=== PATIENT | female | born 1950 | race Caucasian/White ===

== ENCOUNTER 2023-08-22 12:53 | Emergency (ER) | payer OTHER ==
--- OUTSIDE RECORDS SUMMARY | 2023-08-22 12:55 | XMS REPORT | Continuity of Care Document ---
:1950 Author Organization [facility] t Address [address] [place] [address] [place] [id number] Care Team Providers Name Role Phone Carleen Montalvo Primary Care Physician Nixon Delarosa Family Attending Clinician Unavailable Yazmin Santana MD Attending Clinician YAZMIN SANTANA Attending Clinician Unavailable YAZMIN SANTANA Attending Clinician Unavailable 1, [facility] Attending Clinician Unavailable Doctor Unassigned, [place] Attending Clinician Unavailable JAN FITZPATRICK Attending Clinician Unavailable Payers Payer Name Policy Type Policy Number Effective Date Expiration Date S ource Problems Condition Condition Condition Status Onset Resolution Last Treating Co mments Source Name Details Category Date Date Treatment Clinician Date No known No known Disease Unive rs active active ity of problems problems [facility] Allergies, Adverse Reactions, Alerts Allergy Allergy Status Severity Reaction(s) Onset Inactive Treating Comm ents Source Name Type Date Date Clinician NO KNOWN Drug Active Univers ALLERGIE Class ity of S [place] [facility] [place] Social History Social Habit Start Date Stop Date Quantity Comments Source Exposure to Not sure [facility] SARS-CoV-2 (event) Medica l Branch Sex Assigned At [birth year] [facility] 00:00:00 00:00:00 Medical Branch Smoking Status Start Date Stop Date Source Tobacco smoking consumption Univ [facility] Medical unknown Branch Medications Ordered Filled Start Stop Current Ordering Indication Dosage Frequency Signature Comments Components Source Medication Medication Date Date Medication? Clinician (SIG) Name Name traZODone Yes 100mg Take 100 Uni vers 100 mg 8-31 mg by ity of tablet 00:00: mouth. Medical Branch traZODone Yes 100mg Take 100 Uni vers 100 mg 8-31 mg by ity of tablet 00:00: mouth. Medical Branch traZODone Yes 100mg Take 100 Uni vers 100 mg 8-31 mg by ity of tablet 00:00: mouth. Medical Branch montelukast 2021- No 10mg Take 10 mg Univers 10 mg 07-18 by mouth. ity of tablet 00:00: 04:59 [place] 00 :00 Medical Branch albuterol 2020-2021- No 2{puff} Inhale 2 Univers 90 07-18 Puffs. ity of mcg/actuati 00:00: 04:59 [place] on inhaler 00 :00 Medical Branch montelukast 2020-2021- No 10mg Take 10 mg Univers 10 mg 07-18 by mouth. ity of tablet 00:00: 04:59 [place] 00 :00 Medical Branch albuterol 2021- No 2{puff} Inhale 2 Univers 90 07-18 Puffs. ity of mcg/actuati 00:00: 04:59 [place] on inhaler 00 :00 Medical Branch rosuvastati Yes TAKE 1 Univ ers n 40 mg 8-18 TABLET BY ity of tablet 00:00: MOUTH TIME EACH Medical DAY Branch furosemide Yes 1{tbl} Take 1 Uni vers 40 mg 8-18 tablet by ity of tablet 00:00: mouth [place] [address] every Medical morning. Branch rosuvastati Yes TAKE 1 Univ ers n 40 mg 8-18 TABLET BY ity of tablet 00:00: MOUTH 00 TIME EACH Medical DAY Branch furosemide Yes 1{tbl} Take 1 Uni vers 40 mg 8-18 tablet by ity of tablet 00:00: mouth [place] 00 every Medical morning. Branch rosuvastati Yes TAKE 1 Univ ers n 40 mg 8-18 TABLET BY ity of tablet 00:00: MOUTH 00 TIME EACH Medical DAY Branch furosemide Yes 1{tbl} Take 1 Uni vers 40 mg 8-18 tablet by ity of tablet 00:00: mouth [place] 00 every Medical morning. Branch metFORMIN Yes TAKE 1 Univer s 500 mg 8-10 TABLET BY ity of tablet 00:00: MOUTH AT [place] NIGHT Medical Branch metFORMIN Yes TAKE 1 Univer s 500 mg 8-10 TABLET BY ity of tablet 00:00: MOUTH AT [place] NIGHT Medical Branch metFORMIN Yes TAKE 1 Univer s 500 mg 8-10 TABLET BY ity of tablet 00:00: MOUTH AT [place] NIGHT Medical Branch levothyroxi Yes 1 po daily Univers ne 50 mcg 7-26 first ity of tablet 00:00: thing in [place] the Medical morning Branch with just a sip of water. Wait 30 minutes before eating or drinking anything else. levothyroxi Yes 1 po daily Univers ne 50 mcg 7-26 first ity of tablet 00:00: thing in [place] the Medical morning Branch with just a sip of water. Wait 30 minutes before eating or drinking anything else. levothyroxi Yes 1 po daily Univers ne 50 mcg 7-26 first ity of tablet 00:00: thing in [place] the Medical morning Branch with just a sip of water. Wait 30 minutes before eating or drinking anything else. ALPRAZolam Yes TAKE 1 Unive rs 1 mg tablet 6-01 TABLET BY ity of 00:00: MOUTH 3 [place] TIMES Medical DAILY Branch NEEDED FOR ANXIETY ALPRAZolam Yes TAKE 1 Unive rs 1 mg tablet 6-01 TABLET BY ity of 00:00: MOUTH 3 [place] 00 TIMES Medical DAILY Branch NEEDED FOR ANXIETY ALPRAZolam Yes TAKE 1 Unive rs 1 mg tablet 6-01 TABLET BY ity of 00:00: MOUTH 3 [place] 00 TIMES Medical DAILY Branch NEEDED FOR ANXIETY escitalopra Yes 20mg Take 20 mg Univers m oxalate 3-10 by mouth. ity o f 20 mg 00:00: [place] tablet 00 Medical Branch escitalopra 2020-0 Yes 20mg Take 20 mg Univers m oxalate 3-10 by mouth. ity o f 20 mg 00:00: [place] tablet 00 Medical Branch escitalopra Yes 20mg Take 20 mg Univers m oxalate 3-10 by mouth. ity o f 20 mg 00:00: [place] tablet [address] [place] [address] Vital Signs Vital Name Observation Time Observation Value Comments Source Systolic blood 2021-11-29 17:50:00 148 mm[Hg] Univer sity of pressure [facility] Diastolic blood 2021-11-29 17:50:00 63 mm[Hg] Unive rsity of [facility] Heart rate 2021-11-29 17:50:00 68 /min [facility] Body temperature 2021-11-29 17:50:00 35.94 Lilo [facility] Res[facility] rate 2021-11-29 17:50:00 18 /min [facility] Body height 2021-11-29 17:50:00 156.2 cm [facility] Body weight 2021-11-29 17:50:00 98.068 kg [facility] BMI 2021-11-29 17:50:00 40.19 kg/m2 [facility] Oxygen saturation in 2021-11-29 17:50:00 94 /min [facility] Arterial blood by [facility] Pulse oximetry [place] Procedures This patient has no known procedures. Encounters Start End Encounter Admission Attending Care Care Encounter Source Date/Time Date/Time Type Type Clinicians Facility Department ID 2022-08-21 2022-08-21 Diamond Delarosa [facility] [id number] Univers 00:00:00 00:00:00 (Out) [facility] [id number] it y of Family SPECIALTY [id number] loretta CARE - [id number] [facility] 314 Branch 2021-11-29 2021-11-29 [facility] [id number] Univers 11:40:00 12:00:00 Visit Yazmin ROCK [id number] ity [facility] [id number] Simon guzman PROFESSIO [id number] Mi dical NAL 085 Branch BUILDING 2021-11-29 2021-11-29 Outpatient R YAZMIN SANTANA [facility] [id number] Univers 11:40:00 11:58:20 YAZMIN SANTANA [facility] 2021-11-29 2021-11-29 Outpatient R YAZMIN SANTANA [facility] [id number] Univers 11:40:00 11:40:00 YAZMIN SANTANA [facility] 2021-11-15 2021-11-15 Outpatient R YAZMIN SANTANA [facility] [id number] Univers 13:00:00 13:00:00 YAZMIN SANTANA [facility] 2021-11-07 2021-11-07 [employer] 1, [facility] Sleep Lab Bed [facility] [id number] Univers 19:30:00 22:00:00 Visit Yazmin Santana PRANAV [id number] [facility] [id number] [place] [id number] [facility] 193 Branch 2021-11-07 2021-11-07 Outpatient R YAZMIN SANTANA [facility] [id number] Univers 19:30:00 19:30:00 YAZMIN SANTANA [facility] 2021-09-20 2021-09-20 Office Jasonsmita [facility] [id number] Univers 09:13:52 09:34:14 Visit Swapnachristiane Lazar PRANAV [id number] [facility] [id number] [place] [facility] [id number] Mi dical [facility] 085 [facility] 2021-09-20 2021-09-20 Outpatient R YAZMIN SANTANA [facility] [id number] Univers 09:20:00 09:20:00 YAZMIN SANTANA itlani [facility] 2021-08-03 2021-08-03 Orders Doctor AHMADI [id number] Univers 00:00:00 00:00:00 Only Unassigned, [place] [id number] [facility] [id number] [place] [id number] [facility] 009 Branch 2021-01-21 2021-01-21 Outpatient R NANETTE, [facility] [id number] [facility] 13:05:00 13:05:00 JAN gates [facility] Results This patient has no known results.
[2023-08-22 13:34] LABS: Absolute Lymphocytes (CBC) 1.9 K/uL (0.7-4.9); Hematocrit 38.9 % (36.0-45.0); Lymphocytes % 15.2 % (15.3-44.8); MCV 90.4 fL (80-100); MPV 8.5 fL (7.6-11.3); Platelets 236 thou/uL (152-406); RBC Red Blood Cell Count 4.31 M/uL (3.86-4.86)
[2023-08-22 13:36] LABS: Protime INR 0.97
--- NOTE | 2023-08-22 13:40 | RAD REPORT ---
EXAM DESCRIPTION: CT - Head C Spine Cap Wo Con - 08/22/2023 1:12 pm CLINICAL HISTORY: Trauma, head and neck injury. Chest, abdomen and pelvis pain. Dizziness;Pain COMPARISON: No comparisons TECHNIQUE: CT head without contrast. CT cervical spine without contrast with coronal and sagittal reformatted images. CT chest, abdomen and pelvis without contrast with coronal and sagittal reformatted images of the spi ne. All CT scans are performed using dose optimization technique as appropriate and may include automated exposure control or mA/KV adjustment according to patient size. FINDINGS: CT HEAD WITHOUT CONTRAST: No intracranial hemorrhage, hydrocephalus or extra-axial fluid collection. Mild generalized brain atr ophy is present with mild periventricular and deep white matter chronic microvascular ischemic change s. No areas of brain edema or midline shift. The paranasal sinuses and mastoids are clear. The calvarium is intact. CT CERVICAL SPINE WITHOUT CONTRAST: No fracture or subluxation. Moderate multilevel cervical degenerative changes. The prevertebral soft tissues are normal in thickness. CT CHEST, ABDOMEN, PELVIS WITHOUT CONTRAST: NOTE: Lack of contrast is a significant limitation in the assessment of trauma related findings. Spec ifically, solid organ, vascular and bowel evaluation is significantly limited. The lungs are clear.No pneumothorax or pericardial/pleural fluid. No evidence of intra-abdominal visceral injury, free fluid or free air is seen within the above detai led limitations. Cholelithiasis. 12 mm hyperdense cyst superior anterior left kidney. No hydronephrosis. Evidence of previous anterior hernia repair. There is mild laxity of the anterior abdominal wall notable. No fractures. Mild anterolisthesis is seen of L4 on 5 with degenerative changes present. IMPRESSION: Negative for acute traumatic findings within the above detailed limitations.
[2023-08-22 13:58] LABS: Albumin 3.7 g/dL (3.4-5.0); Bilirubin Direct 0.2 mg/dL (0-0.2); Bilirubin Indirect, Calculated 0.2 mg/dL (0.2-0.8); Bilirubin Total 0.4 mg/dL (0.2-1.0); Magnesium 2.5 mg/dL (1.6-2.4); Potassium 3.9 mEq/L (3.5-5.1); Protein, Total 7.4 g/dL (6.4-8.2)
[2023-08-22 13:59] LABS: Specific Gravity 1.013 (1.005-1.030); Urine Bacteria None Seen /HPF (<20); Urine Bilirubin NEGATIVE (Negative); Urine Blood Negative (Negative); Urine Clarity Turbid (Clear); Urine Color Yellow (Yellow); Urine Glucose NEGATIVE (Negative); Urine Granular Casts 0-5 /LPF (None Seen); Urine Mucus Slight /HPF (None Seen); Urine Protein TRACE (Negative); Urine RBC <5 /HPF (None Seen); Urine Urobilinogen Normal (Normal)
--- NOTE | 2023-08-22 14:12 | RAD REPORT ---
EXAM DESCRIPTION: RAD - Chest Single View - 08/22/2023 2:04 pm CLINICAL HISTORY: COUGH Chest pain. COMPARISON: Chest Pa And Lat (2 Views) dated 10/20/2020; Chest Single View dated 09/25/2017; CHEST PA AND LAT 2 VIEW dated 10/21/2015; CHEST PA AND LAT 2 VIEW dated 03/09/2015 FINDINGS: Portable technique limits examination quality. The lungs are grossly clear. The heart is normal in size. No displaced fractures. IMPRESSION: No acute intrathoracic process suspected.
--- NOTE | 2023-08-22 14:28 | EDPHYS ---
Physician Documentation [facility] Name: Nasrin Walls Age: 73 yrs Sex: Female : 1950 Arrival Date: 08/22/2023 Time: 12:53 Bed 12 Private MD: ED Physician Soto Murphy HPI: 08/22 14:19 This 73 yrs old Female presents to ER via Ambulatory with complaints of Fall gonzalez Injury. 14:19 Details of fall: The patient fell from an upright position, while standing, while gonzalez walking. Onset: The symptoms/episode began/occurred last night. Severity of symptoms: At their worst the symptoms were mild, in the emergency department the symptoms are unchanged. The patient has experienced similar episodes in the past, a few times. Historical: - Allergies: 13:02 No Known Allergies; iw - PMHx: 13:02 High Cholesterol; iw ROS: 14:23 Constitutional: Negative for fever, chills, and weight loss, Eyes: Negative for injury, gonzalez pain, redness, and discharge, ENT: Negative for injury, pain, and discharge, Neck: Negative for injury, pain, and swelling, Cardiovascular: Negative for chest pain, palpitations, and edema, Respiratory: Negative for shortness of breath, cough, wheezing, and pleuritic chest pain, Abdomen/GI: Negative for abdominal pain, nausea, vomiting, diarrhea, and constipation, Back: Negative for injury and pain, : Negative for injury, bleeding, discharge, and swelling, MS/Extremity: Negative for injury and deformity, Skin: Negative for injury, rash, and discoloration, Psych: Negative for depression, anxiety, suicide ideation, homicidal ideation, and hallucinations, Allergy/Immunology: Negative for hives, rash, and allergies, Endocrine: Negative for neck swelling, polydipsia, polyuria, polyphagia, and marked weight changes, Hematologic/Lymphatic: Negative for swollen nodes, abnormal bleeding, and unusual bruising, 14:23 Neuro: Positive for altered mental status, dizziness, hallucinations, Exam: 14:23 Constitutional: This is a well developed, well nourished patient who is awake, alert, gonzalez and in no acute distress. Head/Face: Normocephalic, atraumatic. Eyes: Pupils equal round and reactive to light, extra-ocular motions intact. Lids and lashes normal. Conjunctiva and sclera are non-icteric and not injected. Cornea within normal limits. Periorbital areas with no swelling, redness, or edema. ENT: Nares patent. No nasal discharge, no septal abnormalities noted. Tympanic membranes are normal and external auditory canals are clear. Oropharynx with no redness, swelling, or masses, exudates, or evidence of obstruction, uvula midline. Mucous membranes moist. Neck: Trachea midline, no thyromegaly or masses palpated, and no cervical lymphadenopathy. Supple, full range of motion without nuchal rigidity, or vertebral point tenderness. No Meningismus. Chest/axilla: Normal chest wall appearance and motion. Nontender with no deformity. No lesions are appreciated. Cardiovascular: Regular rate and rhythm with a normal S1 and S2. No gallops, murmurs, or rubs. Normal PMI, no JVD. No pulse deficits. Respiratory: Lungs have equal breath sounds bilaterally, clear to auscultation and percussion. No rales, rhonchi or wheezes noted. No increased work of breathing, no retractions or nasal flaring. Abdomen/GI: Soft, non-tender, with normal bowel sounds. No distension or tympany. No guarding or rebound. No evidence of tenderness throughout. Back: No spinal tenderness. No costovertebral tenderness. Full range of motion. Female : Normal external genitalia. Skin: Warm, dry with normal turgor. Normal color with no rashes, no lesions, and no evidence of cellulitis. MS/ Extremity: Pulses equal, no cyanosis. Neurovascular intact. Full, normal range of motion. Neuro: Awake and alert, GCS 15, oriented to person, place, time, and situation. Cranial nerves II-XII grossly intact. Motor strength 5/5 in all extremities. Sensory grossly intact. Cerebellar exam normal. Normal gait. Psych: Awake, alert, with orientation to person, place and time. Behavior, mood, and affect are within normal limits. 14:47 ECG was reviewed by the Attending Physician. [facility] Vital Signs: 13:03 BP 148 / 57; Pulse 67; Resp 16; Temp 98.1; Pulse Ox 95% on R/A; Weight 90.72 kg; Height iw 5 ft. 1 in. ; Pain 0/10; 14:02 BP 145 / 61 Supine; Pulse 71; ld1 14:05 BP 149 / 72 Sitting; Pulse 64; ld1 14:07 BP 151 / 74; Pulse 68; ld1 13:03 Body Mass Index 37.79 (90.72 kg, 154.94 cm) iw 13:03 Pain Scale: Adult iw NIH Stroke Scale Scores: 14:23 NIHSS Score: 0 gonzalez [place] Coma Score: 14:23 Eye Response: spontaneous(4). Motor Response: obeys commands(6). Verbal Response: gonzalez oriented(5). Total: 15. MDM: 12:57 Patient medically screened. gonzalez 14:24 Differential diagnosis: abrasion, closed head injury, fracture, multiple trauma, gonzalez sprain, hypoglycemia, intracranial bleed, overdose, seizure, sepsis, TIA, UTI, volume depletion, cardiac arrhythmia, CVA, generalized weakness, hypovolemia, idiopathic dizziness, near-syncope, sepsis, syncope, TIA. Data reviewed: vital signs, nurses notes, lab test result(s), EKG, radiologic studies, CT scan, plain films. Consideration of Admission/Observation Escalation of care including admission/observation considered. I considered the following discharge prescriptions or medication management in the emergency department Medications were administered in the Emergency Department. See MAR. Independent interpretation of the following test(s) in the Emergency Department EKG: See my EKG interpretation above. Test considered but Not performed: MRI: no mri brain. Historians other than the Patient: Family Member: son , informed. Care significantly affected by the following chronic conditions: high chlesterol. Counseling: I had a detailed discussion with the patient and/or guardian regarding the historical points, exam findings, and any diagnostic results supporting the discharge/admit diagnosis, lab results, radiology results, the need for outpatient follow up, for definitive care, a family practitioner. 08/22 12:59 Order name: Basic Metabolic Panel; Complete Time: 14:15 gonzalez 08/22 12:59 Order name: CBC with Diff; Complete Time: 14:15 gonzalez 08/22 12:59 Order name: LFT's; Complete Time: 14:15 gonzalez 08/22 12:59 Order name: Magnesium; Complete Time: 14:15 gonzalez 08/22 12:59 Order name: NT PRO-BNP; Complete Time: 14:15 gonzalez 08/22 12:59 Order name: PT-INR; Complete Time: 14:15 gonzalez 08/22 12:59 Order name: Troponin HS; Complete Time: 14:15 gonzalez 08/22 12:59 Order name: Urinalysis w/ reflexes; Complete Time: 14:15 [facility] 08/22 12:59 Order name: XRAY Chest (1 view); Complete Time: 14:15 [facility] 08/22 12:59 Order name: CT Traumagram (Head C Spine CAP wo con); Complete Time: 14:15 [facility] 08/22 12:59 Order name: EKG; Complete Time: 12:59 [facility] 08/22 12:59 Order name: Cardiac monitoring; Complete Time: 13:47 [facility] 08/22 12:59 Order name: EKG - Nurse/Tech; Complete Time: 14:33 [facility] 08/22 12:59 Order name: IV Saline Lock; Complete Time: 13:47 [facility] 08/22 12:59 Order name: Labs collected and sent; Complete Time: 13:47 [facility] 08/22 12:59 Order name: O2 Per Protocol; Complete Time: 13:47 [facility] 08/22 12:59 Order name: O2 Sat Monitoring; Complete Time: 13:47 [facility] 08/22 14:29 Order name: Orthostatics; Complete Time: 14:34 [facility] EC:47 Rate is 65 beats/min. Rhythm is regular. QRS [place] is Normal. IA interval is normal. QRS gonzalez interval is normal. QT interval is normal. No Q waves. T waves are Inverted in leads I, aVL, V5, V6. No ST changes noted. Clinical impression: Abnormal EKG without significant change, LVH, and No evidence of ischemia. Interpreted by me. Reviewed by me. Administered Medications: 14:47 Not Given (Patient Refused): ns 0.9% 1000 ml IV at 125 ml/hr continuous iw 14:59 Drug: Rocephin IV 1 grams IV at per protocol once; Given slow IV push per pharmacy iw instructions Route: IV; Rate: per protocol; Site: right antecubital; Disposition Summary: 08/22/23 14:27 Discharge Ordered Notes: Location: Home gonzalez Problem: new gonzalez Symptoms: have improved gonzalez Condition: Stable gonzalez Diagnosis - Visual hallucinations gonzalez - Fall on same level, unspecified gonzalez - Weakness gonzalez - UTI/ Urinary tract infection, site not specified gonzalez Followup: gonzalez - With: Private Physician - When: 2 - 3 days - Reason: Recheck today's complaints, Re-evaluation by your physician Followup: gonzalez - With: Jose Webb MD - When: 2 - 3 days - Reason: Recheck today's complaints, Continuance of care, Re-evaluation by your physician Discharge Instructions: - Discharge Summary Sheet gonzalez - Dysuria gonzalez - Urinary Tract Infection, Adult gonzalez - Weakness gonzalez - Urinary Tract Infection, Adult, Tcxz-na-Rnon gonzalez - Weakness, Oxhb-xg-Blqd gonzalez - Aspirin and Your Heart gonzalez Forms: - Medication Reconciliation Form gonzalez - Thank You Letter gonzalez - Antibiotic Education gonzalez - Prescription Opioid Use gonzalez - Patient Portal Instructions gonzalez - Leadership Thank You Letter gonzalez Prescriptions: - Macrobid 100 mg Oral Capsule - take 1 capsule ORAL route every 12 hours for 7 days; 14 capsule; Refills: 0, gonzalez Product Selection Permitted NIH Stroke Scale - NIH Stroke Score Date: 08/22/2023 Time: 14:23 Total Score = 0 10. Dysarthria (speech clarity - read or repeat words) - 0(Normal) 11. Extinction and Inattention (visual/tactile/auditory/spatial/personal) - 0(No abnormality) 1a. Level of Consciousness (LOC) - 0(Alert) 1b. Level of Consciousness (LOC) (Month \T\ Age) - 0(Both) 1c. LOC Commands (Open \T\ Closes Eyes/Shipping Room Helper) - 0(Both) 2. Best Gaze (Lateral Gaze Paresis) - 0(Normal) 3. Visual Field Loss - 0(No visual loss) 4. Facial Palsy - 0(Normal) 5a. Left Arm: Motor (10-second hold) - 0(No drift) 5b. Right Arm: Motor (10-second hold) - 0(No drift) 6a. Left Leg: Motor (5-second hold - always test supine) - 0(No drift) 6b. Right Leg: Motor (5-second hold - always test supine) - 0(No drift) 7. Limb Ataxia (finger/nose \T\ heel/bryson - test with eyes open) - 0(Absent) 8. Sensory Loss (pinprick arms/legs/face) - 0(Normal) 9. Best Language: Aphasia (description/naming/reading) - 0(No aphasia) Initials: [facility] Signatures: Dispatcher [employer] Soto Werner MD MD cha Williams, Irene, RN RN iw
--- NOTE | 2023-08-22 14:28 | ER ---
Nurse's Notes [facility] Name: Nasrin Walls Age: 73 yrs Sex: Female : 1950 Arrival Date: 08/22/2023 Time: 12:53 Bed 12 Private MD: Diagnosis: Visual hallucinations;Fall on same level, unspecified;Weakness;UTI/ Urinary tract infection, site not specified Presentation: 08/22 12:54 Chief complaint: Patient states: she fell at 3 this morning, got up to bathroom an she iw was on the ground, she was hallucinating after that but she's not anymore, wants to get a CT, not on blood thinners , denies LOC. 12:54 Acuity: RENNY 3 iw 12:55 Coronavirus screen: At this time, the client does not indicate any symptoms associated iw with coronavirus-19. Ebola Screen: Patient negative for fever greater than or equal to 101.5 degrees Fahrenheit, and additional compatible Ebola Virus Disease symptoms Patient denies exposure to infectious person. Patient denies travel to an Ebola-affected area in the 21 days before illness onset. No symptoms or risks identified at this time. Initial Sepsis Screen: Does the patient meet any 2 criteria? No. Patient's initial sepsis screen is negative. Does the patient have a suspected source of infection? No. Patient's initial sepsis screen is negative. Risk Assessment: Do you want to hurt yourself or someone else? Patient reports no desire to harm self or others. Onset of symptoms was August 22, 2023. 12:55 Method Of Arrival: Ambulatory iw Historical: - Allergies: 13:02 No Known Allergies; iw - PMHx: 13:02 High Cholesterol; iw Screenin:04 [facility] ED Fall Risk Assessment (Adult) History of falling in the last 3 months, iw including since admission Yes- single mechanical fall (1 pt) Score/Fall Risk Level. Abuse screen: Denies threats or abuse. Denies injuries from another. Nutritional screening: No deficits noted. Tuberculosis screening: No symptoms or risk factors identified. Assessment: 13:03 General: Appears in no apparent distress. comfortable, Behavior is calm, cooperative. iw Pain: Denies pain. Neuro: Level of Consciousness is awake, alert, obeys commands, Oriented to person, place, time, situation, Moves all extremities. Full function. Neuro: Denies weakness blurred vision dizziness. Cardiovascular: Patient's skin is warm and dry. Respiratory: Airway is patent is compromised. Derm: Skin is intact, is healthy with good turgor. Musculoskeletal: Range of motion: intact in all extremities. Vital Signs: 13:03 BP 148 / 57; Pulse 67; Resp 16; Temp 98.1; Pulse Ox 95% on R/A; Weight 90.72 kg; Height iw 5 ft. 1 in. ; Pain 0/10; 14:02 BP 145 / 61 Supine; Pulse 71; ld1 14:05 BP 149 / 72 Sitting; Pulse 64; ld1 14:07 BP 151 / 74; Pulse 68; ld1 13:03 Body Mass Index 37.79 (90.72 kg, 154.94 cm) iw 13:03 Pain Scale: Adult iw Ages [place] Coma Score: 14:23 Eye Response: spontaneous(4). Motor Response: obeys commands(6). Verbal Response: gonzalez oriented(5). Total: 15. NIH Stroke Scale Scores: 14:23 NIHSS Score: 0 gonzalez ED Course: 12:54 Patient arrived in ED. ld1 12:55 Triage completed. iw 12:57 Soto Murphy MD is Attending Physician. gonzalez 13:03 Swetha Arechiga RN is Primary Nurse. iw 13:03 Arm band placed on. iw 13:14 CT Traumagram (Head C Spine CAP wo con) In Process Unspecified. EDMS 13:25 Initial lab(s) drawn, by ga, sent to lab. Urine collected: clean catch specimen. iw Inserted saline lock: 22 gauge in right antecubital area, using aseptic technique. Blood collected. 14:06 XRAY Chest (1 view) In Process Unspecified. EDMS 14:27 Jose Webb MD is Referral Physician. gonzalez Administered Medications: 14:47 Not Given (Patient Refused): ns 0.9% 1000 ml IV at 125 ml/hr continuous iw 14:59 Drug: Rocephin IV 1 grams IV at per protocol once; Given slow IV push per pharmacy iw instructions Route: IV; Rate: per protocol; Site: right antecubital; Medication: 13:04 VIS not applicable for this client. iw Outcome: 14:27 Discharge ordered by . gonzalez 15:14 Patient left the ED. iw NIH Stroke Scale - NIH Stroke Score Date: 08/22/2023 Time: 14:23 Total Score = 0 10. Dysarthria (speech clarity - read or repeat words) - 0(Normal) 11. Extinction and Inattention (visual/tactile/auditory/spatial/personal) - 0(No abnormality) 1a. Level of Consciousness (LOC) - 0(Alert) 1b. Level of Consciousness (LOC) (Month \T\ Age) - 0(Both) 1c. LOC Commands (Open \T\ Closes Eyes/Pharmacy Clinical Coordinator) - 0(Both) 2. Best Gaze (Lateral Gaze Paresis) - 0(Normal) 3. Visual Field Loss - 0(No visual loss) 4. Facial Palsy - 0(Normal) 5a. Left Arm: Motor (10-second hold) - 0(No drift) 5b. Right Arm: Motor (10-second hold) - 0(No drift) 6a. Left Leg: Motor (5-second hold - always test supine) - 0(No drift) 6b. Right Leg: Motor (5-second hold - always test supine) - 0(No drift) 7. Limb Ataxia (finger/nose \T\ heel/bryson - test with eyes open) - 0(Absent) 8. Sensory Loss (pinprick arms/legs/face) - 0(Normal) 9. Best Language: Aphasia (description/naming/reading) - 0(No aphasia) Initials: gonzalez Signatures: Dispatcher [employer] Soto Werner MD MD cha Williams, Irene, RN RN iw Sims, Lauren, RN RN ld1
[2023-08-22] MEDS ORDERED: CEFTRIAXONE 1000 MG/VIAL ONE (15:07)
[2023-08-22 16:11] VITALS: TEMP 98.1; O2SAT 95
[2023-08-22 16:14] VITALS: BP 151/74
--- NOTE | 2023-08-23 12:22 | EKG ---
Test Date: 2023-08-22 Test Time: 14:36:44 Ice Handler: Julia SALAS MEASUREMENT RESULTS: Intervals: Rate: 65 WV: 182 QRSD: 132 QT: 424 QTc: 440 [place]: P: WV: 182 QRS: -35 T: 140 INTERPRETIVE STATEMENTS: Normal sinus rhythm Left axis deviation Right bundle branch block Voltage criteria for left ventricular hypertrophy T wave abnormality, consider lateral ischemia Abnormal ECG Compared to ECG 10/20/2020 12:28:58 Right bundle-branch block now present T-wave abnormality now present Ventricular premature complex(es) no longer present First degree AV block no longer present ST (T wave) deviation no longer present Possible ischemia still present Electronically Signed On 08-23-23 12:20:26 CDT by Lorne Augustine
== END 2023-08-22 15:14 | disposition home or self-care (01) ==
LOC: ER 12:53
DX: R44.1 Visual hallucinations (principal); N39.0 Urinary tract infection, site not specified; R53.1 Weakness; W18.30XA Fall on same level, unspecified, initial encounter
CPT/HCPCS: 93005; 85025; 81001; 80048; 36415; 83735; 85610; 80076; 84484; 83880; 70450; 71250; 72125; 71045; 96374; 99284; J0696